=== PATIENT | female | born 1980 | race Caucasian/White ===

== ENCOUNTER 2018-03-10 04:21 | Inpatient (IN) | payer BC, OTHER ==
[2018-03-10] MEDS: ONDANSETRON 4 MG INJ IV ×2 (07:12→18:09)
[2018-03-10] MEDS: SOD CHLORIDE 0.9% 1,000 ML IV ×3 (07:12→18:44)
[2018-03-10 07:14] LABS: ADD MAN DIFF? NO
[2018-03-10 07:23] LABS: WHITE BLOOD COUNT 14.4 10^3/ul (4.8-10.8)
[2018-03-10 07:23] LABS: BASOPHIL # 0.1 10^3/ul (0.0-0.1); BASOPHILS % 0.3 % (0.0-2.0); EOSINOPHILS # 0.1 10^3/ul (0.0-0.5); HEMATOCRIT 45.7 % (37.0-47.0); HEMOGLOBIN 15.5 g/dl (12.0-16.0); LYMPHOCYTES # 1.6 10^3/ul (0.8-2.9); LYMPHOCYTES % 11.4 % (15.0-51.0); MEAN CORPUSCULAR HEMOGLOBIN 29.8 pg (29.0-33.0); MEAN CORPUSCULAR HGB CONC 33.9 g/dl (32.0-37.0); MEAN CORPUSCULAR VOLUME 87.9 fl (82.0-101.0); MEAN PLATELET VOLUME 11.5 fl (7.4-10.4); MONOCYTE # 0.4 10^3/ul (0.3-0.9); MONOCYTES % 3.1 % (0.0-11.0); NEUTROPHIL # 12.1 10^3/ul (1.6-7.5); NEUTROPHILS % 83.9 % (39.0-77.0); PLATELET COUNT 203 10^3/UL (140-415); RED CELL DISTRIBUTION WIDTH 12.9 % (11.5-14.5)
[2018-03-10 07:51] LABS: ADD UMIC NO; UR ASCORBIC ACID NEGATIVE (NEGATIVE); UR BILIRUBIN (Dip) NEGATIVE (NEGATIVE); UR BLOOD (Dip) NEGATIVE (NEGATIVE); UR CLARITY CLEAR (CLEAR); UR COLOR STRAW (YELLOW); UR GLUCOSE (Dip) NEGATIVE (NEGATIVE); UR KETONES (Dip) NEGATIVE (NEGATIVE); UR LEUKOCYTE ESTERASE (Dip) NEGATIVE Leu/ul (NEGATIVE); UR NITRITE (Dip) NEGATIVE (NEGATIVE); UR SPECIFIC GRAVITY (Dip) 1.006 (1.003-1.030); UR TOTAL PROTEIN (Dip) NEGATIVE (NEGATIVE); UR UROBILINOGEN (Dip) NEGATIVE (NEGATIVE)
[2018-03-10] MEDS: KETOROLAC 15 MG INJ IV ×3 (07:54→20:32)
[2018-03-10 08:36] LABS: ALANINE AMINOTRANSFERASE 70 IU/L (13-69); ALBUMIN 3.8 g/dl (3.3-4.9); ALBUMIN/GLOBULIN RATIO 1.31; ALKALINE PHOSPHATASE 56 IU/L (42-121); ANION GAP 12 (8-16); ASPARTATE AMINO TRANSFERASE 86 IU/L (15-46); BILIRUBIN,INDIRECT 0.5 mg/dl (0-1.1); BILIRUBIN,TOTAL 0.5 mg/dl (0.2-1.3); BLOOD UREA NITROGEN 18 mg/dl (7-20); CARBON DIOXIDE 28 mmol/L (21-31); CHLORIDE 108 mmol/L (97-110); CREATININE 0.82 mg/dl (0.44-1.00); GLUCOSE 95 mg/dl (70-220); LIPASE 58 U/L (23-300); POTASSIUM 4.4 mmol/L (3.5-5.1); SODIUM 144 mmol/L (135-144); TOTAL PROTEIN 6.7 g/dl (6.1-8.1)
[2018-03-10] MEDS: PIPER-TAZO 3.375 GM IV (PMX) 100 ML IVPB ×2 (08:38→13:10)
[2018-03-10] MEDS ORDERED: NACL 0.9% 3 ML SYG IV (10:00)
[2018-03-10] MEDS ORDERED: DOCUSATE SODIUM 100 MG CAP PO (10:00)
[2018-03-10 11:25] LABS: INR 0.99; PROTIME 13.2 Sec (11.9-14.9)
[2018-03-10 11:26] LABS: PARTIAL THROMBOPLASTIN TIME 29.8 Sec (25.0-35.0)
[2018-03-10] MEDS: LORATADINE 10 MG TAB PO (11:30)
[2018-03-10] MEDS ORDERED: LORAZEPAM 2 MG INJ IV (12:30)
[2018-03-10] MEDS ORDERED: FENTAnyl 50 MCG/ML VIAL (16:04)
[2018-03-10] MEDS ORDERED: MIDAZOLAM 1 MG/ML 2 ML INJ (16:04)
[2018-03-10] MEDS ORDERED: ONDANSETRON 4 MG INJ (16:10)
[2018-03-10] MEDS ORDERED: PROPOFOL 20 ML (16:10)
[2018-03-10] MEDS ORDERED: LIDOCAINE 100 MG SYRINGE (16:10)
[2018-03-10] MEDS: BUPIVACAINE 0.5%/EPI (SDV) 30 ML INJ (16:20)
[2018-03-10] MEDS ORDERED: SUGAMMADEX SODIUM 200 MG/2 ML VIAL IV (16:36)
[2018-03-10] MEDS: LEVOFLOXACIN 500MG/D5W (PMX) 100 ML IVPB (16:43)
[2018-03-10] MEDS ORDERED: MEPERIDINE 25 MG INJ (16:45)
[2018-03-10] MEDS ORDERED: DIPHENHYDRAMINE 50 MG INJ IV (17:00)
[2018-03-10] MEDS ORDERED: OXYCODONE/ACETAMINOPHEN (5/325) TAB PO (17:00)
[2018-03-10] MEDS ORDERED: KETOROLAC 30 MG INJ IV (17:00)
[2018-03-10] MEDS ORDERED: HYDROmorphONE (0.2 MG/ML) 10ML SYG IV (17:00)
[2018-03-10] MEDS ORDERED: LEVOFLOXACIN 500MG/D5W (PMX) 100 ML IVPB (17:00)
[2018-03-10] MEDS ORDERED: FENTAnyl 50 MCG/ML VIAL IV ×2 (17:00)
[2018-03-10] MEDS ORDERED: ONDANSETRON 4 MG INJ IV ×2 (17:00)
[2018-03-10] MEDS: HYDROmorphONE (0.2 MG/ML) 10ML SYG IV ×3 (17:03→17:47)
[2018-03-10] MEDS: MEPERIDINE 25 MG INJ IV (17:04)
[2018-03-10] MEDS: FAMOTIDINE 20 MG INJ IV (20:32)
[2018-03-10] MEDS: ACETAMINOPHEN 325 MG TAB PO (22:39)
[2018-03-10] MEDS: CETIRIZINE 10 MG TAB PO (22:46)
[2018-03-11] MEDS: KETOROLAC 15 MG INJ IV (02:30)
[2018-03-11 05:14] LABS: ADD MAN DIFF? NO
[2018-03-11 05:21] LABS: WHITE BLOOD COUNT 9.6 10^3/ul (4.8-10.8)
[2018-03-11 05:21] LABS: BASOPHILS % 0.2 % (0.0-2.0); HEMATOCRIT 34.8 % (37.0-47.0); HEMOGLOBIN 11.6 g/dl (12.0-16.0); LYMPHOCYTES # 1.1 10^3/ul (0.8-2.9); LYMPHOCYTES % 11.9 % (15.0-51.0); MEAN CORPUSCULAR HGB CONC 33.3 g/dl (32.0-37.0); MEAN CORPUSCULAR VOLUME 89.9 fl (82.0-101.0); MONOCYTE # 0.5 10^3/ul (0.3-0.9); MONOCYTES % 4.9 % (0.0-11.0); NEUTROPHIL # 7.9 10^3/ul (1.6-7.5); NEUTROPHILS % 82.7 % (39.0-77.0); PLATELET COUNT 160 10^3/UL (140-415); RED BLOOD COUNT 3.87 10^6/ul (4.20-5.40); RED CELL DISTRIBUTION WIDTH 12.6 % (11.5-14.5)
[2018-03-11] MEDS: SOD CHLORIDE 0.9% 1,000 ML IV (05:31)
[2018-03-11 05:53] LABS: ALANINE AMINOTRANSFERASE 60 IU/L (13-69); ALBUMIN 2.9 g/dl (3.3-4.9); ALBUMIN/GLOBULIN RATIO 1.11; ALKALINE PHOSPHATASE 42 IU/L (42-121); ANION GAP 10 (8-16); ASPARTATE AMINO TRANSFERASE 50 IU/L (15-46); BILIRUBIN,INDIRECT 0.4 mg/dl (0-1.1); BILIRUBIN,TOTAL 0.4 mg/dl (0.2-1.3); BLOOD UREA NITROGEN 14 mg/dl (7-20); CALCIUM 8.3 mg/dl (8.4-10.2); CARBON DIOXIDE 26 mmol/L (21-31); CHLORIDE 113 mmol/L (97-110); CHOLESTEROL 141 mg/dl (100-200); CREATININE 0.84 mg/dl (0.44-1.00); GLUCOSE 92 mg/dl (70-220); HDL CHOLESTEROL 46 mg/dl (34-82); LDL CHOLESTEROL,CALCULATED 85 mg/dl; MAGNESIUM 1.8 mg/dl (1.7-2.5); PHOSPHORUS 3.8 mg/dl (2.5-4.9); POTASSIUM 4.4 mmol/L (3.5-5.1); SODIUM 145 mmol/L (135-144); TOTAL PROTEIN 5.5 g/dl (6.1-8.1); TRIGLYCERIDES 52 mg/dl (0-149)
[2018-03-11] MEDS: ACETAMINOPHEN 325 MG TAB PO (06:40)
[2018-03-11 06:52] LABS: HEMOGLOBIN A1C 4.9 % (0-5.9)
[2018-03-11] MEDS ORDERED: LORATADINE 10 MG TAB PO (09:00)
[2018-03-11] MEDS: IBUPROFEN 600 MG TAB PO (09:00)
[2018-03-11] MEDS: FAMOTIDINE 20 MG INJ IV (09:00)
[2018-03-11] MEDS: CETIRIZINE 10 MG TAB PO (09:01)
[2018-03-11] MEDS: HYDROCODONE/APAP (5/325) TAB PO (09:44)
== END 2018-03-11 16:10 | disposition home or self-care (01) | DRG 340 ==
LOC: E/R 04:21 → MS1 08:33
PROVIDERS: Internal Medicine
PROC: 0DTJ4ZZ Resection of Appendix, Percutaneous Endoscopic Approach (ICD-10-PCS; principal; 2018-03-10 15:56)
DX: K35.3 Acute appendicitis with localized peritonitis (principal); L25.9 Unspecified contact dermatitis, unspecified cause
CPT/HCPCS: 36415; 74176; 80053; 80061; 81003; 83036; 83690; 83735; 84100; 84703; 85025; 85610; 85730; 96361; 96365; 96366; 96375; 99285-25

== ENCOUNTER 2018-07-30 11:47 | Emergency (ER) | payer BC ==
[2018-07-30] MEDS: DEXAMETHASONE 10 MG/ML 1 ML INJ PO (13:00)
[2018-07-30] MEDS: KETOROLAC 30 MG INJ IM (14:04)
[2018-07-30] MEDS: DEXAMETHASONE 2 MG TAB PO (14:08)
[2018-07-30] MEDS: DIAZEPAM 2 MG TAB PO (14:08)
[2018-07-30] MEDS: DEXAMETHASONE 4 MG TAB PO (14:09)
== END 2018-07-30 15:10 | disposition home or self-care (01) ==
LOC: FTE 11:47
DX: M54.5 Low back pain (principal)
CPT/HCPCS: 72100; 81025; 96372; 99284-25

== ENCOUNTER 2018-08-28 20:36 | Emergency (ER) | payer BC ==
[2018-08-28 21:43] LABS: URINE BLOOD (Dip) POC Negative (NEGATIVE); URINE GLUCOSE (Dip) POC Negative (NEGATIVE); URINE KETONES (Dip) POC Negative (NEGATIVE); URINE LEUKOCYTE EST (Dip) POC Negative (NEGATIVE); URINE NITRITE (Dip) POC Negative (NEGATIVE); URINE TOTAL PROTEIN POC 1+ (NEGATIVE)
== END 2018-08-28 23:00 | disposition home or self-care (01) ==
LOC: FTE 20:36
DX: R10.2 Pelvic and perineal pain (principal); R19.7 Diarrhea, unspecified; R40.2412 Glasgow coma scale score 13-15, at arrival to emergency department
CPT/HCPCS: 81003; 81025; 99282